=== PATIENT | female | born 2000 | race Caucasian/White ===

== ENCOUNTER → 2021-10-15 | Outpatient (CLI) | payer SELFPAY ==
[2021-10-16 13:18] LABS: Candida species (DNA Probe) Positive (NEGATIVE); G. vaginalis (DNA Probe) Positive (NEGATIVE); T. vaginalis (DNA Probe) Negative (NEGATIVE)
== END | disposition home or self-care (01) ==
LOC: LAB 17:57 → LAB SHORT 17:57
PROVIDERS: Family Medicine
DX: N76.0 Acute vaginitis (principal)
CPT/HCPCS: 87480; 87510; 87660

== ENCOUNTER → 2023-02-01 | Outpatient (CLI) | payer SELFPAY ==
[~2023-02-01] MED LIST: ALBU90OI INH; PRED20 PO
[2023-02-01 14:51] LABS: BASOPHILS ABSOLUTE AUTO 0.08 K/mm3 (0.00-0.23); BASOPHILS PERCENT AUTO 1 % (0-2); EOSINOPHILS ABSOLUTE AUTO 0.07 K/mm3 (0.00-0.68); EOSINOPHILS PERCENT AUTO 1 % (0-6); Hematocrit 42.6 % (33.0-51.0); Hemoglobin 14.7 g/dL (11.5-16.0); IMMATURE GRAN ABSOLUTE AUTO 0.01 K/mm3 (0.00-0.10); IMMATURE GRAN PERCENT AUTO 0 % (0-1); LYMPHOCYTES ABSOLUTE AUTO 2.75 K/mm3 (0.84-5.20); LYMPHOCYTES PERCENT AUTO 40 % (21-46); MONOCYTES ABSOLUTE AUTO 0.62 K/mm3 (0.16-1.47); MONOCYTES PERCENT AUTO 9 % (4-13); Mean Corpuscular HGB 30.1 pg (26.0-34.0); Mean Corpuscular HGB Conc 34.5 g/dL (31.5-36.5); Mean Corpuscular Volume 87 fL (80-100); Mean Platelet Volume 9.6 fL (9.1-12.4); NEUTROPHILS PERCENT AUTO 48 % (41-73); Platelet Count 302 K/mm3 (150-400); RDW Coefficient Variation 12.2 % (11.7-14.2); RDW Standard Deviation 39.2 fL (35.1-46.3); Red Blood Cell Count 4.88 M/mm3 (3.80-5.20); White Blood Cell Count 6.83 K/mm3 (4.00-11.30)
[2023-02-01 16:09] LABS: Albumin, Blood 4.7 g/dL (3.4-5.0); Albumin/Globulin Ratio 1.1 (0.8-1.8); Bilirubin, Total 0.6 mg/dL (0.1-1.0); Bun/Creatinine Ratio 16.6 (12.0-20.0); Calcium, Blood 9.3 mg/dL (8.5-10.1); Creatinine, Blood 0.6 mg/dL (0.40-1.00); Globulin, Blood 4.1 g/dL (2.2-4.0); Potassium, Blood 3.4 mmol/L (3.5-5.5); Total Protein, Blood 8.8 g/dL (6.4-8.2)
== END | disposition home or self-care (01) ==
LOC: LAB SHORT 14:44 → LAB 14:44
PROVIDERS: Emergency Medicine
DX: I47.10 Supraventricular tachycardia, unspecified (principal)
CPT/HCPCS: 80053; 83690; 83880; 84484; 85025

== ENCOUNTER → 2023-06-11 | Outpatient (CLI) | payer OTHER ==
[2023-06-11 11:50] LABS: BASOPHILS ABSOLUTE AUTO 0.06 K/mm3 (0.00-0.23); BASOPHILS PERCENT AUTO 1 % (0-2); EOSINOPHILS ABSOLUTE AUTO 0.06 K/mm3 (0.00-0.68); EOSINOPHILS PERCENT AUTO 1 % (0-6); Hematocrit 40.1 % (33.0-51.0); Hemoglobin 13.6 g/dL (11.5-16.0); IMMATURE GRAN ABSOLUTE AUTO 0.01 K/mm3 (0.00-0.10); IMMATURE GRAN PERCENT AUTO 0 % (0-1); LYMPHOCYTES ABSOLUTE AUTO 1.46 K/mm3 (0.84-5.20); LYMPHOCYTES PERCENT AUTO 19 % (21-46); MONOCYTES PERCENT AUTO 5 % (4-13); Mean Corpuscular HGB 29.7 pg (26.0-34.0); Mean Corpuscular HGB Conc 33.9 g/dL (31.5-36.5); Mean Corpuscular Volume 88 fL (80-100); Mean Platelet Volume 9.5 fL (9.1-12.4); NEUTROPHILS ABSOLUTE AUTO 5.57 K/mm3 (1.96-9.15); NEUTROPHILS PERCENT AUTO 74 % (41-73); Platelet Count 250 K/mm3 (150-400); RDW Coefficient Variation 12.3 % (11.7-14.2); RDW Standard Deviation 39.1 fL (35.1-46.3); Red Blood Cell Count 4.58 M/mm3 (3.80-5.20); White Blood Cell Count 7.56 K/mm3 (4.00-11.30)
[2023-06-11 12:08] LABS: Albumin, Blood 4.6 g/dL (3.4-5.0); Albumin/Globulin Ratio 1.2 (0.8-1.8); Bilirubin, Total 0.4 mg/dL (0.1-1.0); Bun/Creatinine Ratio 18.6 (12.0-20.0); Calcium, Blood 9.4 mg/dL (8.5-10.1); Creatinine, Blood 0.59 mg/dL (0.40-1.00); Globulin, Blood 3.8 g/dL (2.2-4.0); Potassium, Blood 3.6 mmol/L (3.5-5.5); Total Protein, Blood 8.4 g/dL (6.4-8.2)
== END ==
LOC: LAB SHORT 11:45 → LAB 11:45
PROVIDERS: Family Medicine
DX: R07.89 Other chest pain (principal); E87.6 Hypokalemia; R53.83 Other fatigue
CPT/HCPCS: 80053; 84484; 85025

== ENCOUNTER 2023-07-13 05:04 | Day surgery (SDC) | payer OTHER ==
[2023-07-13 08:27] VITALS: BP 130/76
== END 2023-07-13 09:33 | disposition home or self-care (01) ==
LOC: ATC 05:04
DX: R00.2 Palpitations (principal); R00.0 Tachycardia, unspecified; R42 Dizziness and giddiness; Z79.899 Other long term (current) drug therapy

== ENCOUNTER 2023-09-22 21:27 | Emergency (ER) | payer OTHER ==
[~2023-09-22] VITALS: Ht 170.2 cm; Wt 59.0 kg
[~2023-09-22 21:27] MED LIST changes: +Flonase 0.05% N16 GM; +METO25ER PO
[2023-09-22 21:34] VITALS: BP 141/86
[2023-09-22 22:06] LABS: BASOPHILS ABSOLUTE AUTO 0.03 K/mm3 (0.00-0.23); BASOPHILS PERCENT AUTO 0 % (0-2); EOSINOPHILS PERCENT AUTO 1 % (0-6); Hematocrit 42.2 % (33.0-51.0); Hemoglobin 14.2 g/dL (11.5-16.0); IMMATURE GRAN ABSOLUTE AUTO 0.01 K/mm3 (0.00-0.10); IMMATURE GRAN PERCENT AUTO 0 % (0-1); LYMPHOCYTES ABSOLUTE AUTO 0.73 K/mm3 (0.84-5.20); LYMPHOCYTES PERCENT AUTO 10 % (21-46); MONOCYTES ABSOLUTE AUTO 0.47 K/mm3 (0.16-1.47); MONOCYTES PERCENT AUTO 6 % (4-13); Mean Corpuscular HGB 29.6 pg (26.0-34.0); Mean Corpuscular HGB Conc 33.6 g/dL (31.5-36.5); Mean Corpuscular Volume 88 fL (80-100); Mean Platelet Volume 9.5 fL (9.1-12.4); NEUTROPHILS ABSOLUTE AUTO 6.11 K/mm3 (1.96-9.15); NEUTROPHILS PERCENT AUTO 82 % (41-73); Platelet Count 221 K/mm3 (150-400); RDW Standard Deviation 38.9 fL (35.1-46.3); Red Blood Cell Count 4.79 M/mm3 (3.80-5.20); White Blood Cell Count 7.45 K/mm3 (4.00-11.30)
[2023-09-22 22:24] LABS: Albumin, Blood 4.3 g/dL (3.4-5.0); Albumin/Globulin Ratio 1.1 (0.8-1.8); Bilirubin, Total 0.3 mg/dL (0.1-1.0); Bun/Creatinine Ratio 18.2 (12.0-20.0); Calcium, Blood 8.8 mg/dL (8.5-10.1); Creatinine, Blood 0.55 mg/dL (0.40-1.00); Globulin, Blood 3.8 g/dL (2.2-4.0); Potassium, Blood 3.8 mmol/L (3.5-5.5); Total Protein, Blood 8.1 g/dL (6.4-8.2)
[2023-09-22] MEDS ORDERED: RX Prepack 2 Tabs Ondansetron ODT 4MG UD ONE (22:40)
== END 2023-09-22 22:45 | disposition home or self-care (01) ==
LOC: ER 21:27
PROVIDERS: Physician Assistant
DX: R07.9 Chest pain, unspecified (principal); Z79.899 Other long term (current) drug therapy
CPT/HCPCS: 80053; 85025; 93005; 93010; 99285-25; A9270

== ENCOUNTER 2024-12-23 23:05 | Emergency (ER) | payer OTHER ==
[~2024-12-23] VITALS: Ht 170.2 cm; Wt 59.0 kg
[2024-12-23] MEDS ORDERED: NS 1,000 ML IV SCH (23:35)
[2024-12-23] MEDS ORDERED: Ondansetron HCl 2 MG / ML 2ML Vial IV ONE (23:35)
[2024-12-23 23:57] LABS: BASOPHILS ABSOLUTE AUTO 0.03 K/mm3 (0.00-0.23); BASOPHILS PERCENT AUTO 0 % (0-2); EOSINOPHILS ABSOLUTE AUTO 0.06 K/mm3 (0.00-0.68); EOSINOPHILS PERCENT AUTO 1 % (0-6); Hematocrit 41.2 % (33.0-51.0); Hemoglobin 14.0 g/dL (11.5-16.0); IMMATURE GRAN ABSOLUTE AUTO 0.03 K/mm3 (0.00-0.10); IMMATURE GRAN PERCENT AUTO 0 % (0-1); LYMPHOCYTES ABSOLUTE AUTO 0.54 K/mm3 (0.84-5.20); LYMPHOCYTES PERCENT AUTO 5 % (21-46); MONOCYTES ABSOLUTE AUTO 0.53 K/mm3 (0.16-1.47); MONOCYTES PERCENT AUTO 5 % (4-13); Mean Corpuscular HGB Conc 34.0 g/dL (31.5-36.5); Mean Corpuscular Volume 87 fL (80-100); NEUTROPHILS ABSOLUTE AUTO 10.37 K/mm3 (1.96-9.15); NEUTROPHILS PERCENT AUTO 90 % (41-73); NRBC ABSOLUTE 0.00 K/mm3 (0.00-0.02); NRBC Auto 0.0 /100 WBC (0.0-0.2); Platelet Count 235 K/mm3 (150-400); RDW Coefficient Variation 12.1 % (11.7-14.2); RDW Standard Deviation 38.6 fL (35.1-46.3)
[2024-12-24 00:15] LABS: Alanine Aminotransfer (ALT/SGP 37.0 U/L (12-78); Albumin, Blood 4.4 g/dL (3.4-5.0); Albumin/Globulin Ratio 1.3 (0.8-1.8); Anion Gap 10.0 mmol/L (3-11); Aspartate Aminotrans (AST/SGOT 25.0 U/L (12-37); Bilirubin, Total 0.6 mg/dL (0.1-1.0); Blood Urea Nitrogen 17.0 mg/dL (8-24); CO2, Blood 25.0 mmol/L (21-32); Calcium, Blood 9.1 mg/dL (8.5-10.1); Chloride, Blood 105.0 mmol/L (98-108); Creatinine, Blood 0.52 mg/dL (0.40-1.00); Globulin, Blood 3.4 g/dL (2.2-4.0); Glucose, Blood 111.0 mg/dL (70-99); Potassium, Blood 3.8 mmol/L (3.5-5.5); Sodium, Blood 136.0 mmol/L (136-145); Total Protein, Blood 7.8 g/dL (6.4-8.2)
[2024-12-24 03:13] LABS: Source, Urine Clean Catch
[2024-12-24 03:16] LABS: Bilirubin, Urine Neg (Neg); Glucose Qualitative, Urine Neg (Neg); Ketones, Urine 4+ (Neg); Leukocyte Esterase, Urine Neg (Neg); Protein, Urine 2+ (Neg); Specific Gravity, Urine 1.025 (1.003-1.022); Urobilinogen, Urine NORM (Normal)
[2024-12-24 03:17] LABS: Influenza A, PCR NEGATIVE (NEGATIVE); Influenza B, PCR NEGATIVE (NEGATIVE); Resp Syncytial Virus, PCR NEGATIVE (NEGATIVE); SARS-Cov-2 (COVID-19) PCR, MMC NEGATIVE (NEGATIVE)
[2024-12-24 03:19] LABS: Color, Urine Yellow (P-Yellow)
[2024-12-24 03:23] LABS: Red Blood Cells, Urine 0-2 /hpf (0-2); White Blood Cells, Urine 0-2 /hpf (0-5)
[2024-12-24] MEDS ORDERED: Prochlorperazine Edisylate 10 mg Vial IV ONE (04:05)
[2024-12-24] MEDS ORDERED: DiphenhydrAMINE HCl 50 MG/ML 1ML Vial IV ONE (04:05)
[2024-12-24] MEDS ORDERED: ONDA4ODT MM (04:09)
[2024-12-24 04:15] VITALS: BP 113/63
== END 2024-12-24 04:24 | disposition home or self-care (01) ==
LOC: ER 23:05
PROVIDERS: Emergency Medicine; Physician Assistant
DX: R11.2 Nausea with vomiting, unspecified (principal); E86.0 Dehydration; R10.9 Unspecified abdominal pain; Z79.899 Other long term (current) drug therapy; Z59.89 Other problems related to housing and economic circumstances
CPT/HCPCS: 80053; 81001; 84703; 85025; 87637; 96361; 96374; 96375; 99284-25; J0780; J1200; J2405; J7030